=== PATIENT | female | born 1980 ===

== ENCOUNTER 2018-04-09 05:32 | Day surgery (SDC) | payer OTHER ==
[2018-04-09] VITALS (10 sets, daily range): BP systolic 108–131; BP diastolic 67–87
[~2018-04-09] VITALS: Ht 168.9 cm; Wt 98.4 kg
[~2018-04-09 05:32] MED LIST: PRENATAL LOW I1 EACH PO
[2018-04-09] MEDS ORDERED: ceFAZolin 1gm IVPB IVPB ONE ×2 (06:00)
[2018-04-09] MEDS ORDERED: celeBREX 200mg Cap **SURGERY PATIENTS ONLY ORAL ONE (06:00)
[2018-04-09] MEDS ORDERED: Clindamycin 600mg/D5W 50ml IV ONE (06:00)
[2018-04-09] MEDS ORDERED: oxyCONTIN 20mg tab ORAL ONE (06:00)
[2018-04-09] MEDS ORDERED: Zemuron 50mg/5ml Inj IV ONE (07:09)
[2018-04-09] MEDS ORDERED: Kenalog-40 1ml Vial ONE (07:23)
[2018-04-09] MEDS ORDERED: EPINEPHrine 1mg/1ml Amp ONE (07:23)
[2018-04-09] MEDS ORDERED: Lidocaine 1% 10mg/ml/Epi 0.005mg/ml 30ml vial INJ ONE (07:23)
[2018-04-09] MEDS ORDERED: Morphine Sulfate PF 10 ML ONE (07:23)
[2018-04-09] MEDS ORDERED: Ketorolac 30mg Inj ONE (07:23)
[2018-04-09] MEDS ORDERED: Bupivacaine 0.25% Inj 30ml INJ ONE (07:24)
[2018-04-09] MEDS ORDERED: LR 1000ml ONE (07:30)
--- NOTE | 2018-04-09 07:31 | Pre-Procedure Note/Attestation ---
Pre-Procedure Note/Attestation Complete Prior to Procedure Planned Procedure: left Procedure Narrative: knee diagnostic arthroscopy, possible synocetomy, possible menisectomy Indications for Procedure Pre-Operative Diagnosis: left knee internal derangement Attestation I attest that I discussed the nature of the procedure; its benefits; risks and complications; and alternatives (and the risks and benefits of such alternatives ), prior to the procedure, with the patient (or the patient's legal truck sales representative). I attest that, if there was a reasonable possibility of needing a blood transfusion, the patient (or the patient's legal truck sales representative) was given the [facility] standardized written summary, pursuant to the [place] Blood Safety Act ([place] [facility] and Safety Code # 1645, as amended). I attest that I re-evaluated the patient just prior to the surgery and that there has been no change in the patient's H&P, except as documented below: Jabier Vizcarra MD Apr 09, 2018 07:31
--- NOTE | 2018-04-09 07:32 | Operative Note - PDOC ---
Operative Note Operative Note Pre-op Diagnosis: left knee internal derangement Procedure: see op report Post-op Diagnosis: same as pre-op plus Operative Findings: consistent w/pre-op dx studies Anesthesia: MAC Specimen: none Complications: none Condition: stable Estimated Blood Loss: none Implant(s) used?: No Jabier Vizcarra MD Apr 09, 2018 07:32
[2018-04-09] MEDS ORDERED: fentaNYL 100 mcg/2 mL IV ONE (07:37)
[2018-04-09] MEDS ORDERED: Midazolam 2mg/2ml Inj ONE (07:37)
[2018-04-09] MEDS ORDERED: NS Irrig 4000ml IRRIG ONE (07:45)
[2018-04-09] MEDS ORDERED: Metoclopramide 10mg/2ml Inj ONE (08:00)
[2018-04-09] MEDS ORDERED: Propofol 200mg/20ml IV ONE (08:00)
[2018-04-09] MEDS ORDERED: Lidocaine 1% MPF 10mg/ml 5ml ONE (08:00)
[2018-04-09] MEDS ORDERED: Metoclopramide 10mg/2ml Inj IVP PRN ×2 (08:15→08:45)
[2018-04-09] MEDS ORDERED: fentaNYL 100 mcg/2 mL IV PRN (08:15)
--- NOTE | 2018-04-09 08:17 | Anethesia Preoperative Eval ---
Anesthesia Pre-op PMH/ROS General Date of Evaluation: Apr 09, 2018 Time of Evaluation: 07:00 Anesthesiologist: su ASA Score: ASA 2 Mallampati Score Class I : Soft palate, uvula, fauces, pillars visible Class II: Soft palate, uvula, fauces visible Class III: Soft palate, base of uvula visible Class IV: Only hard plate visible Mallampati Classification: Class II Surgeon: stephen Diagnosis: knee pain Surgical Procedure: left knee arthroscopy Anesthesia History: none Family History: no anesthesia problems Allergies: Coded Allergies: PSEUDOEPHEDRINE (Verified Allergy, Severe, 04/09/18) hives,itching Medications: see eMAR Patient NPO?: Yes NPO Date: Apr 09, 2018 NPO Time: 00:01 Past Medical History Cardiovascular: Denies: HTN, CAD, MD, valve dz, arrhythmia, other Pulmonary: Denies: asthma, COPD, GERARD, other Gastrointestinal/Genitourinary: Denies: GERD, CRI, ESRD, other Neurologic/Psychiatric: Denies: dementia, CVA, depression/anxiety, TIA, other Endocrine: Denies: DM, hypothyroidism, steroids, other Hematology/Immune: Denies: anemia, DVT, bleeding disorder, other Musculoskeletal/Integumentary: Denies: OA, RA, DJD, DDD, edema, other Other: obesity PSxH Narrative: knee surgery Anesthesia Pre-op Phys. Exam Physician Exam Last Vital Signs Date Time Temp Pulse Resp B/P (MAP) Pulse Ox O2 Delivery O2 Flow Rate FiO2 04/09/18 06:02 Room Air 04/09/18 06:00 97.3 62 18 108/67 98 Constitutional: NAD Neurologic: CN 2-12 intact Cardiovascular: RRR Respiratory: CTA Gastrointestinal: S/NT/ND Airway Exam Mallampati Classification 3 Mallampati Score: Class II MO: full ROM: full Dentures: no upper, no lower Anesthesia Pre-op A/P Labs Urine Test Test 04/09/18 05:45 Urine HCG, Qualitative Negative (NEGATIVE) Studies Pre-op Studies: EKG - xf Risk Assessment & Plan Plan: General Pre-Antibiotics Drug: ancef Given Within 1 Hr of Incision: Yes Time Given: 08:00 Klarissa Millard CRNA Apr 09, 2018 08:17
--- NOTE | 2018-04-09 08:53 | Immediate Post-Op Evaluation ---
Immediate Post-Op Evalulation Immediate Post-Op Evalulation Procedure: knee scope Date of Evaluation: Apr 09, 2018 Time of Evaluation: 08:53 IV Fluids: 500 Blood Pressure Systolic: 120 Blood Pressure Diastolic: 70 Pulse Rate: 74 Respiratory Rate: 14 O2 Sat by Pulse Oximetry: 98 Temperature (Fahrenheit): 98.0 Nausea: No Vomiting: No Complications none Patient Status: awake, reacts, patent Hydration Status: adequate Drug: ancef Given Within 1 Hr of Incision: Yes Time Given: 08:45 Klarissa Millard CRNA Apr 09, 2018 08:53
--- NOTE | 2018-04-09 13:33 | 48 Hour Post Anesthesia Eval ---
Post Anesthesia Evaluation Procedure: knee scope Date of Evaluation: Apr 09, 2018 Time of Evaluation: 13:32 Blood Pressure Systolic: 111 0: 86 Pulse Rate: 74 Respiratory Rate: 14 O2 Sat by Pulse Oximetry: 98 Airway: patent Nausea: No Vomiting: No Hydration Status: adequate Cardiopulmonary Status: stable Mental Status/LOC: patient returned to baseline Follow-up Care/Observations: na Post-Anesthesia Complications: none Follow-up care needed: N/A Klarissa Millard CRNA Apr 09, 2018 13:33
[2018-04-09] MEDS ORDERED: D5 1/2NS 1,000 ML IV SCH (16:01)
[2018-04-09] MEDS ORDERED: Tylenol #3 tab (300mg/30mg) ORAL PRN (16:01)
[2018-04-09] MEDS ORDERED: HYDROmorphone 1mg/ml Carpuject SUBQ PRN (16:01)
[2018-04-09] MEDS ORDERED: Norco 5mg/325mg tab ORAL PRN (16:01)
--- NOTE | 2018-04-09 18:00 | Operative Note - Dictated ---
DATE OF OPERATION: 04/09/2018 PREOPERATIVE DIAGNOSIS: Internal derangement, left knee. POSTOPERATIVE DIAGNOSES: 1. Left knee symptomatic medial plica. 2. Hypertrophic fat pad syndrome. PROCEDURE: 1. Left knee diagnostic arthroscopy. 2. Incision of medial plica. 3. Synovectomy, medial and lateral patellofemoral compartment. SURGEON: Jabier Vizcarra M.D. ANESTHESIA: MAC. INDICATION FOR PROCEDURE: The patient is a pleasant female, who has had progressive knee pain. She still had significant pain and discomfort therefore we elected to undergo diagnostic arthroscopy. Risks, limitations, expectations, and complications of the procedure were discussed in detail. All questions were addressed. DESCRIPTION OF PROCEDURE: After informed consent was obtained, the patient was brought to the operating room. The patient was placed under general anesthesia. Left leg was prepped and draped in a sterile manner. Time-out was performed. Ancef was administered. Inferolateral stab incision was then made. Trocar was introduced into the knee joint with some resistance. There is hypertrophic fat pad in the synovial tissue making visualization of patellofemoral component somewhat difficult. There was thickening of the capsule consistent with a plica that was causing some rubbing of the medial side of the condyle. The medial compartment was free of any chondral damage. Medial working portal was established. Synovectomy of the fat pad and synovium was performed to better visualize the anterior horn which was intact. The ligamentum mucosa and fat pad was further excised to better visualize the ACL which was intact as was the lateral compartment. Lateral compartment was entered, free meniscal chondral damage. The camera was repositioned in the patellofemoral compartment . Excision of the medial plica was completed. Once that was done, the patellofemoral compartment was better visualized. No chondral damage. The instruments removed. Portal sites were closed with 3-0 Monocryl sutures. ESTIMATED BLOOD LOSS: None. COMPLICATIONS: None. SPECIMENS: None. IMPLANTS: None. Jabier Vizcarra M.D. DR: David JOB#: [id number] CC: BANG
== END 2018-04-09 11:00 | disposition home or self-care (01) ==
LOC: SUR 05:32
DX: M67.52 Plica syndrome, left knee (principal); M79.4 Hypertrophy of (infrapatellar) fat pad; G40.909 Epilepsy, unspecified, not intractable, without status epilepticus; E66.9 Obesity, unspecified; Z88.8 Allergy status to other drugs, medicaments and biological substances
CPT/HCPCS: 29876; 81025; J0171; J0690; J1885; J2250; J2274; J2405; J2704; J2765; J3010; J3301; J3490; 94003; 94150